=== PATIENT | male | born 1995 | race Caucasian/White ===

== ENCOUNTER 2016-06-23 14:04 | Inpatient (IN) | payer OTHER ==
--- NOTE | ~2016-06-23 | DS ---
Unit #: [id number] #: [id number] Patient: REANNA ALMONTE [id number] [facility] [address] [place] [address] [id number] I MR#: [id number] NAME: REANNA ALMONTE ROOM: [facility] Age: 21 Sex: M Admission Date: 06/23/2016 : 1995 Discharge Date: 06/27/2016 Attending Physician: Jourdan Barton M.D. Primary Care Physician: Primary Care Physician No DISCHARGE SUMMARY REASON FOR ADMISSION Overdose, depression, and substance abuse. DIAGNOSTIC STUDIES LABORATORY RESULTS: Unremarkable. HOSPITAL COURSE The patient was admitted to inpatient unit on 06/23/2016 and discharged on 06/27/2016. The patient was treated on the inpatient unit with chemical dependency group, expressive therapy, medication management, psychoeducation, and structured milieu. The patient responded well with the above modalities of treatment. DISCHARGE MEDICATIONS The patient was discharged on the following medication, Celexa 20 mg daily for depression. DISCHARGE DIAGNOSES Psychiatric: Opioid use disorder, severe, F11.20; mood disorder, not otherwise specified, F32.9. Secondary diagnosis: Deferred. Medical diagnosis: Recent overdose on polypharmacy. Stressors: Psychosocial stressor. DISCHARGE INSTRUCTIONS The patient to follow up in outpatient clinic as per web content & social media manager. CONDITION ON DISCHARGE The patient was pleasant and cooperative. Denied any psychotic symptom or any suicidal ideation. PROGNOSIS Guarded. DIET AND ACTIVITY As tolerated. Dictated by... Jourdan Barton M.D. Unit #: [id number] #: [id number] Patient: REANNA ALMONTE SZC/modl TD: 06/27/2016 16:12 JOB #: [id number] DISCHARGE SUMMARY Page 1 of 1 X Jourdan Barton MD X DISCHARGE SUMMARY
--- NOTE | ~2016-06-23 | PN ---
Unit #: [id number] #: [id number] Patient: REANNA ALMONTE [id number] [facility] [address] [place] [address] [id number] MR#: [id number] NAME: REANNA ALMONTE ROOM: [facility] Age: 21 Sex: M Admission Date: 06/23/2016 : 1995 Attending Physician: Jourdan Barton M.D. Admitting Physician: Jourdan Barton M.D. Primary Care Physician: Primary Care Physician Brenda MAYNARD NOTES DATE OF SERVICE: 06/25/2016 DISCUSSION Reanna Almonte is a 21-year-old male, seen on 06/25/2016. The patient interviewed, chart reviewed, and obtained information from nursing staff. The patient continues to be isolative, flat affect, guarded, withdrawn. The patient reports no withdrawal symptoms. The patient denied any thoughts of harming self or others. Complete review of systems unremarkable. MENTAL STATUS EXAMINATION General appearance, the patient dressed casually. Attention span and concentration, fair. Oriented in place and person. Mood and affect, sad and dysphoric. Speech, monotone. Thought process, concrete. The patient denied any thoughts of harming self or others. Recent and remote memory, poor. Insight and judgment, poor. DIAGNOSES 1. Opioid abuse disorder, moderate. 2. Mood disorder, not otherwise specified. ASSESSMENT AND PLAN Advised to continue with current therapeutic intervention and detox protocol. If needed, consider SSRI medication. Dictated by... Yonis Chase/albina TD: 06/27/2016 00:06 JOB #: [id number] Unit #: [id number] #: [id number] Patient: REANNA ALMONTE PROGRESS NOTES Page 1 of 1 X Jourdan Barton MD PROGRESS NOTE
--- NOTE | ~2016-06-23 | PN ---
Unit #: [id number] #: [id number] Patient: REANNA ALMONTE [id number] [facility] [address] [place] [address] [id number] MR#: [id number] NAME: REANNA ALMONTE ROOM: [facility] Age: 21 Sex: M Admission Date: 06/23/2016 : 1995 Attending Physician: Jourdan Barton M.D. Admitting Physician: Jourdan Barton M.D. Primary Care Physician: Primary Care Physician Brenda ROUSE PROGRESS NOTES DATE 06/26/2016 DISCUSSION Reanna Almonte is a 21-year-old male. The patient interviewed, chart reviewed, and obtained information from the nursing staff. The patient tolerating medication fairly well, maintained safe behavior, compliant and cooperative. REVIEW OF SYSTEMS Complete review of systems unremarkable. MENTAL STATUS EXAMINATION General appearance: Patient dressed casually. Attention span and concentration, fair. Oriented to place and person. Mood and affect, labile. Speech, monotone. Thought process, concrete. The patient denied any thoughts of harming self or others. Recent and remote memory, poor. Insight and judgment, poor. DIAGNOSIS Opiate use disorder, severe. ASSESSMENT/PLAN Advised to continue with the current medication and therapeutic protocol, and if needed consider further adjustment of medication. Dictated by... Yonis Chase/alonso TD: 06/27/2016 12:18 JOB #: [id number] Unit #: [id number] #: [id number] Patient: REANNA ALMONTE PROGRESS NOTES Page 1 of 1 X Jourdan Barton MD X PROGRESS NOTE
--- NOTE | ~2016-06-23 | PA ---
Unit #: [id number] #: [id number] Patient: REANNA ALMONTE [id number] [facility] [address] [place] [address] [id number] I MR#: [id number] NAME: REANNA ALMONTE ROOM: [facility] Age: 21 Sex: M Admission Date: 06/23/2016 : 1995 Date of Assessment: 06/24/2016 Attending Physician: Jourdan Barton M.D. Admitting Physician: Jourdan Barton M.D. Primary Care Physician: Primary Care Physician No PSYCHIATRIC ASSESSMENT INFORMANTS The patient reliability, fair informant and chart reliability, good. CHIEF COMPLAINT Overdose, depression, and opioid abuse. HISTORY OF PRESENT ILLNESS Reanna Robledo is a 21-year-old male, admitted with the above-mentioned complaint. The patient was brought to the [facility] Emergency Room after overdose on heroin, amphetamine, benzos, and marijuana. The patient reported that he has been using drugs for the last 5 years. Reported this is his second overdose. The patient reported he is depressed. The patient recommended admission. The patient denied ever been treated. The patient denied any psychotic symptom or any homicidal ideation. The patient reported tobacco use, age of onset 20; marijuana, age of onset 16; opioid, age of onset 20; amphetamine, age of onset 19; and benzodiazepine, age of onset 19. Longest period of sobriety 6 weeks. Last period of sobriety in 12/2015. The patient currently denied any withdrawal symptoms. No history of blackout, IV drug abuse, HIV, hepatitis, and withdrawal symptom except recently. PAST PSYCHIATRIC HISTORY Unremarkable. FAMILY HISTORY AND SOCIAL HISTORY The patient has a good support system. No history of abuse. MEDICAL HISTORY Unremarkable for any chronic medical condition. Musculoskeletal; muscle strength and tone, no atrophy or abnormal movement. Gait normal. MEDICATION HISTORY None. ALLERGIES No known drug allergies. SUBSTANCE ABUSE HISTORY Please see above. REVIEW OF SYSTEMS HEENT: Eyes, clear. Ears, nose, mouth, and throat; clear. CARDIOVASCULAR: Unremarkable. Unit #: [id number] #: [id number] Patient: REANNA ALMONTE RESPIRATORY: Unremarkable. GI: Unremarkable. : Unremarkable. SKIN: Unremarkable. LYMPH NODE: Unremarkable. NEUROLOGIC: Unremarkable. ENDOCRINE: Unremarkable. HEMATOLOGIC: Unremarkable. ALLERGIC/IMMUNOLOGIC: Unremarkable. MUSCULOSKELETAL: Muscle strength and tone, no atrophy or abnormal movement. Gait normal. MENTAL STATUS EXAMINATION CONSTITUTIONAL: Measurement of vital signs; temperature 97.9, heart rate 60, respiratory rate 21, and blood pressure 93/57. Height 5 feet 6 inches and weight 121 pounds. GENERAL APPEARANCE: The patient dressed casually. The patient did not show any facial deformity. MUSCULOSKELETAL: Please see above. PSYCHIATRIC EXAMINATION Description of speech; regular rate, normal volume, normal articulation, coherent, and spontaneous. Description of thought process, goal directed. Description of association, intact. Description of abnormal psychotic thinking; he patient denied any hallucinations or delusions, but mood lability and substance abuse. Description of the patient's judgment: Concerning everyday activity, poor. Social situation, poor. Concerning psychiatric condition, poor. Complete mental status examination; oriented in time, place, and person. Recent and remote memory, fair. Attention span and concentration, fair. Language, able to name object and repeat phrases. Fund of knowledge, aware of current event and passive vocabulary intact. Mood and affect, sad and dysphoric. Insight and judgment, fair to poor. ASSETS AND LIABILITIES Assets, the patient is articulate and able to take care of his ADL. Liability, history of substance abuse and depression. ADMITTING DIAGNOSES Psychiatric: Opioid use disorder, severe, F11.20 and mood disorder, not otherwise specified, F32.9. Secondary diagnosis: Deferred. Medical diagnosis: Recent overdose of polypharmacy. Stressors: Psychosocial stressors. PSYCHIATRIC PLAN AND TREATMENT GOAL AND DISCHARGE PLAN 1. Advised to admit the patient on the inpatient unit. Provide safe, supportive, and structured environment. 2. Ordered labs; CBC, CMP, UA, and UDS. 3. The patient to attend all the programing on the inpatient unit with group therapy, individual therapy, family therapy, detox protocol, and detox monitoring. If needed, consider SSRI. TREATMENT GOAL Unit #: [id number] #: [id number] Patient: REANNA ALMONTE To attain euthymic mood, gain insight into his problem, and learn coping skills. DISCHARGE PLAN Plan to stabilize the patient and consider followup in outpatient program. ESTIMATED LENGTH OF STAY 5 days. Dictated by... Jourdan Barton M.D. PRASANNA/albina TD: 06/24/2016 16:04 JOB #: [id number] PSYCHIATRIC ASSESSMENT Page 1 of 1 X Jourdan Barton MD PSYCHIATRIC ASSESSMENT
--- NOTE | ~2016-06-23 | HP ---
Unit #: [id number] #: [id number] Patient: REANNA ALMONTE [id number] [facility] [address] [place] [address] [id number] I MR#: [id number] NAME: REANNA ALMONTE ROOM: [facility]9 Age: 21 Sex: M Admission Date: 06/23/2016 : 1995 Attending Physician: Jourdan Barton M.D. Admitting Physician: Jourdan Barton M.D. Primary Care Physician: Primary Care Physician No HISTORY AND PHYSICAL HISTORY OF PRESENT ILLNESS The patient is a 21-year-old man, who has been admitted to [facility] for his continued substance abuse. PAST MEDICAL HISTORY Substance abuse. PAST SURGICAL HISTORY None. ALLERGIES No known allergies. HOME MEDICATIONS None. FAMILY HISTORY Medically noncontributory. SOCIAL HISTORY The patient endorses polysubstance abuse. REVIEW OF SYSTEMS CONSTITUTIONAL: The patient denies fever or chills. HEENT: Denies any sore throat, ear pain or runny nose. CARDIOVASCULAR: Denies chest pain, irregular heart rhythm or palpitations. CHEST: Denies shortness of breath or cough. No hemoptysis. GASTROINTESTINAL: Denies nausea, vomiting, diarrhea or chronic constipation. ENDOCRINE: Denies history of increased thirst or urination. Denies recent weight loss or gain. GENITOURINARY: Denies dysuria, frequency, or hematuria. SKIN: Denies any rashes. HEMATOLOGIC: Denies history of increased bleeding or bruising. MUSCULOSKELETAL: Denies any hot, swollen joints. No generalized muscle pain. NEUROLOGIC: Denies problems with vision or speech. No frequent, severe headaches. No numbness, tingling or weakness in any extremities. Denies loss of bladder or bowel control. PHYSICAL EXAMINATION GENERAL: The patient is awake, alert, and in no acute distress. VITAL SIGNS: Temperature 98.3, heart rate 60, respirations 20, and blood Unit #: [id number] #: [id number] Patient: REANNA ALMONTE pressure 93/57. WEIGHT: 121 pounds. HEIGHT: 5 feet 6 inches. SKIN: Warm and dry without rash or lesion. HEENT: Head: Atraumatic and normocephalic. Pupils equal, round, and reactive to light. Extraocular movements are intact. No drainage from nares or ears. NECK: Supple. Trachea is midline. HEART: Regular rate and rhythm. LUNGS: Clear. ABDOMEN: Soft, nontender. : Not done. SKIN: Warm and dry without any unusual rashes or bruising. EXTREMITIES: No evidence of clubbing, edema, or cyanosis. NEUROLOGICAL: Cranial Nerves: II-XII are intact. No focal deficits. Sensory and Motor Function: Sensory and motor sensation is grossly normal. Motor: moves all extremities well. Coordination: Gait is normal. Deep Tendon Reflexes: Intact. IMPRESSION Psychiatric admission. RECOMMENDATIONS Psychiatric, will be per psychiatry. MEDICAL I see no contraindications to participating in facility's activities. MEDICAL PROGNOSIS Fair. MEDICAL CONDITION Stable. Dictated by... Rachel Connell A.P.R.N. for Merly Briceno M.D. AM/alonso TD: 06/24/2016 12:52 JOB #: [id number] HISTORY AND PHYSICAL Page 1 of 1 X Rachel Connell APRN X HISTORY AND PHYSICAL
[2016-06-27 07:56] LABS: URINE APPEARANCE CLOUDY; URINE BILIRUBIN NEG (NEG); URINE BLOOD NEG (NEG); URINE COLOR YELLOW; URINE GLUCOSE NORM (NORM); URINE KETONE NEG (NEG); URINE LEUKOCYTE ESTERASE NEG (NEG); URINE NITRATE NEG (NEG); URINE PROTEIN NEG (NEG); URINE SPECIFIC GRAVITY 1.025 (1.003-1.035); URINE UROBILINOGEN NORM (NORM)
[2016-06-27 08:25] LABS: AMPHETAMINE NEG (NEG); BARBITURATES NEG (NEG); BENZODIAZEPINES POS (NEG); COCAINE NEG (NEG); MARIJUANA POS (NEG); OPIATES NEG (NEG); TRICYCLIC ANTIDEPRESSANTS NEG (NEG); U METHADONE NEG (NEG)
[2016-06-29 00:38] LABS: HA AB IGM (HEPPAN) Nonreactive (()); HB CORE AB IGM (HEPPAN) Nonreactive (Nonreactive); HB S AG (HEPPAN) Nonreactive (Nonreactive); HEP C AB (HEPPAN) Nonreactive (Nonreactive); HEP C AB SIGNAL TO CUTOFF 0.02 ratio (<1.00)
== END 2016-06-27 10:51 | DRG 897 ==
LOC: P2S 18:34
PROVIDERS: Psychiatry & Neurology Psychiatry
PROC: HZ2ZZZZ Detoxification Services for Substance Abuse Treatment (ICD-10-PCS; principal; 2016-06-23)
DX: F11.20 Opioid dependence, uncomplicated (principal); F29 Unspecified psychosis not due to a substance or known physiological condition; F32.9 Major depressive disorder, single episode, unspecified
CPT/HCPCS: 80074; 80307; 81003; 86592; 87806